=== PATIENT | male | born 1990 | race African-American/Black ===

== ENCOUNTER 2017-03-28 20:52 | Emergency (ER) | payer SELFPAY ==
[2017-03-28 21:47] VITALS: BP 153/102
[2017-03-28] MEDS ORDERED: POLYMYXIN B SULFATE/TMP OPH SOLN (10 ML/ER DISP) OU PRN (22:27)
--- NOTE | 2017-03-28 22:30 | ER Document Report ---
ED General - General Chief Complaint: Eye Problem Stated Complaint: POSSIBLE PINK EYE Time Seen by Provider: 03/28/17 22:23 Notes: Patient is a 26-year-old male who presents with complaint of pinkeye. Patient says yesterday he was getting pinkeye and redness in to his right eye. This morning when he woke up he had matting of both eyes. He now has redness and irritation to both eyes. He does not wear contacts. No recent trauma to the eye. No foreign bodies sensation. No other complaints at this time. TRAVEL OUTSIDE OF THE [place] IN LAST 30 DAYS: No - Related Data Allergies/Adverse Reactions: No Known Allergies Allergy (Verified 03/28/17 21:44) Past Medical History - Social History Smoking Status: Never Smoker Frequency of alcohol use: None Drug Abuse: None Family History: None Renal/ Medical History: Denies: Hx Peritoneal Dialysis - Immunizations Hx Diphtheria, Pertussis, Tetanus Vaccination: No - not up to date Review of Systems - Review of Systems Notes: My Normal Review Basic REVIEW OF SYSTEMS: CONSTITUTIONAL : Denies fever, chills, or sweats. Denies recent illness. EENT: Eye redness. RESPIRATORY: Denies cough, cold, or chest congestion. Denies shortness of breath, difficulty breathing, or wheezing. ALL OTHER SYSTEMS REVIEWED AND NEGATIVE. Physical Exam - Vital signs Vitals: Temp Pulse Resp BP Pulse Ox 98.1 F 89 16 153/102 H 99 03/28/17 21:44 03/28/17 21:44 03/28/17 21:44 03/28/17 21:44 03/28/17 21:44 - Notes Notes: General Appearance: Well nourished, alert, cooperative, no acute distress, no obvious discomfort. Vitals: reviewed, See vital signs table. Head: no swelling or tenderness to the head Eyes: PERRL, EOMI, patient has conjunctival erythema to both eyes. He does have signs of discharge from matting to the eyes. Cornea is not cloudy appearing. Mouth: No decreasd moisture Neuro: speech clear, oriented x 3, normal affect, responds appropriately to questions. Course - Re-evaluation Re-evalutation: 03/29/17 06:36 Patient has physical exam findings consistent with conjunctivitis. I gave him Polytrim eyedrops here which he will apply. Patient encouraged to return to ER if he has worsening redness of his eye, worsening pain or feels unwell. I gave him referral to ophthalmology for follow-up if his symptoms are not improving over the next 2 days. Patient agrees with plan and will be discharged home. Dictation of this chart was performed using voice recognition software; therefore, there may be some unintended grammatical errors. - Vital Signs Vital signs: Temp Pulse Resp BP Pulse Ox 98.1 F 89 16 153/102 H 99 03/28/17 21:44 03/28/17 21:44 03/28/17 21:44 03/28/17 21:44 03/28/17 21:44 Discharge - Discharge Clinical Impression: Conjunctivitis Qualifiers: Conjunctivitis type: acute Acute conjunctivitis type: unspecified Laterality: bilateral Qualified Code(s): H10.33 - Unspecified acute conjunctivitis, bilateral Condition: Good Disposition: HOME, SELF-CARE Additional Instructions: Conjunctivitis You have an infection in your eye, commonly known as "pink eye." Conjunctivitis causes redness, mild discomfort, itching, and mattering on the eyelids. It is very contagious, so you must be careful to wash your hands after touching your face so you don't pass the infection on to others. Conjunctivitis is caused by both viruses and bacteria. It usually responds quickly to treatment with antibiotic drops. These should be placed in the eye as prescribed (usually every three to four hours while you're awake). If you wear contact lenses, don't put them in your eyes until the infection is cleared and you are no longer using the drops (unless your doctor advises you otherwise). Should you develop increasing eye pain, severe swelling, decreased vision, or fail to improve as expected, please return for re-examination. Please apply the polytrim eye drops as 1 drop to each eye every 3 hours for 7 days. Please return to the ER if your eyes are becoming more red or worsening despite the drops. Please follow up with the eye doctor, Dr. Curtis, if you are not having significant improvement in 2 days. Forms: Return to Work Referrals: CORINA CURTIS DO [ACTIVE STAFF] - 03/30/17
== END 2017-03-28 22:52 | disposition home or self-care (01) ==
LOC: ER 20:52
DX: H10.33 Unspecified acute conjunctivitis, bilateral (principal)
CPT/HCPCS: 99283; J3490